=== PATIENT | male | born 1980 | race Caucasian/White ===

== ENCOUNTER 2024-02-20 05:33 | Day surgery (SDC) | payer OTHER ==
[2024-02-18 15:13] VITALS: BMI 32.0
[2024-02-20] MEDS: IV FLUID CONTINUATION 1,000 ML IV ONE (05:55)
[2024-02-20] MEDS: LACTATED RINGERS 1,000 ML IV SCH (06:13)
[2024-02-20 06:14] VITALS: TEMP 98
[2024-02-20] MEDS ORDERED: GLYCOPYRROLATE 0.2 MG/ML 2 ML VIAL ONE (06:30)
[2024-02-20] MEDS ORDERED: PROPOFOL 10 MG/ML 20 ML VIAL IV ONE (06:30)
[2024-02-20] MEDS ORDERED: LIDOCAINE 2% (PF) 20 MG/ML 5 ML VIAL ONE (06:30)
--- NOTE | 2024-02-20 06:52 | P.PCN ---
Date of Procedure: 02/20/24 Procedure(s) Performed: Brief history: Patient is a pleasant 43-year-old white male scheduled for an elective upper endoscopy as well as colonoscopy as a part of evaluation of longstanding history of GERD and screening for colon cancer. His father and paternal grandfather both diagnosed with colon cancer in their 50s and 60s respectively Procedure performed: Esophagogastroduodenoscopy with biopsy Colonoscopy Preoperative diagnosis: Longstanding history of GERD Screening for colon cancer and family history of colon cancer Anesthesia: MAC Procedure: After informed consent was obtained from the patient was brought into the endoscopy unit and IV sedation was administered by anesthesia under continuous monitoring. Initially upper endoscopy was done. The Olympus GF 160 video endoscope was inserted inserted into the mouth and esophagus intubated without any difficulty and was gradually advanced into the stomach and duodenum and carefully examined. The bulb and second part of the duodenum appeared normal. The scope was then withdrawn into the stomach adequately insufflated with air and upon careful examination the antrum had a 2 cm broad-based polyp that was biopsied. Mucosa of the body, cardia and fundus appeared normal. The scope was then withdrawn into the esophagus. Hiatal hernia noted. The GE junction was located at 36 cm to the incisors. It appeared regular with n superficial erosions in the distal esophagus consistent with LA grade B reflux esophagitis.. Rest of the esophagus appeared normal. Patient tolerated the procedure well. At this time the patient continued to remain sedation. Initial digital rectal examination was normal. Olympus CF 160 video colonoscope was then inserted into the rectum and gradually advanced to the cecum without any difficulty. Careful examination was performed as the scope was gradually being withdrawn. The prep was excellent. The cecum, ascending colon, transverse colon, descending colon, sigmoid colon and rectum appeared normal. Retroflexion was performed in the rectum and internal hemorrhoid were noted. Patient tolerated the procedure well. Impression: 1. Upper endoscopy revealed small hiatal hernia, LA grade B reflux esophagitis and 2 cm antral polyp status post multiple biopsies 2. Anoscopy to be small hemorrhoids but no evidence of colorectal neoplasia Recommendations: Findings of this examination were discussed with the patient as well as his family. He was advised to follow-up with the biopsy results and vaginal biopsy results with recommendations will be made.. Recommend increasing the Protonix to 40 mg twice daily and follow antireflux measures. Recommended repeat colonoscopy in 5 years because of strong family history of colon cancer
[2024-02-20 07:33] VITALS: BP 114/76; PULSE 50; RESP 18
== END 2024-02-20 07:44 | disposition home or self-care (01) ==
LOC: ORWHC2ENDO 05:33
PROVIDERS: ATTEND Internal Medicine Gastroenterology
DX: K21.00 Gastro-esophageal reflux disease with esophagitis, without bleeding (principal); K29.50 Unspecified chronic gastritis without bleeding; K31.7 Polyp of stomach and duodenum; K44.9 Diaphragmatic hernia without obstruction or gangrene; Z12.11 Encounter for screening for malignant neoplasm of colon; K64.9 Unspecified hemorrhoids; Z80.0 Family history of malignant neoplasm of digestive organs; Z79.899 Other long term (current) drug therapy
CPT/HCPCS: 88305; 43239; J2704; J2003; J1596; G0105; 45378